=== PATIENT | female | born 1995 | race African-American/Black ===

== ENCOUNTER 2017-07-13 20:20 | Emergency (ER) | payer OTHER ==
[~2017-07-13] VITALS: Ht 154.9 cm; Wt 104.3 kg
[2017-07-13 20:27] VITALS: BP 148/89
[2017-07-13] MEDS ORDERED: BIRTH CONTROL (20:32)
[2017-07-13] MEDS ORDERED: MOBIC15 MG PO (21:10)
== END 2017-07-13 21:21 | disposition home or self-care (01) ==
LOC: ER 20:20
DX: L05.91 Pilonidal cyst without abscess (principal)